=== PATIENT | female | born 1950 | race Caucasian/White ===

== ENCOUNTER → 2016-07-16 | Outpatient (CLI) | payer OTHER ==
[~2016-07-16] VITALS: Ht 170.2 cm; Wt 70.3 kg
[~2016-07-16] MED LIST: OMG1KC PO; TRAM-42 PO
== END ==
LOC: PREOP 07-15 05:41
PROVIDERS: ATTEND Orthopaedic Surgery
DX: Z01.818 Encounter for other preprocedural examination (principal); M23.8X1 Other internal derangements of right knee; M79.661 Pain in right lower leg

== ENCOUNTER 2016-07-22 09:29 | Day surgery (SDC) | payer OTHER ==
[~2016-07-22] VITALS: Ht 170.2 cm; Wt 70.3 kg
[~2016-07-22 09:29] MED LIST changes: -TRAM-42 PO
[2016-07-22] MEDS ORDERED: LACTATED RINGERS 1,000 ML IV PRN (09:52)
[2016-07-22] MEDS ORDERED: CATHETER FLUSH 10 ML SYR IV PRN (10:00)
[2016-07-22] MEDS ORDERED: CLINDAMYCIN 900 MG/NS 50 ML IVPB IV ONE ×3 (10:00)
[2016-07-22] MEDS ORDERED: BUP/EPI 0.5% 1:200,000 (SENSORCAINE) 30 ML VIAL ONE (10:09)
[2016-07-22] MEDS ORDERED: NEO/POLY/BAC (NEOSPORIN) OINT 15 GM TUBE ONE (10:09)
[2016-07-22] MEDS ORDERED: LIDOCAINE 1% INJ 20 ML (XYLOCAINE) VIAL ONE (10:09)
[2016-07-22] MEDS ORDERED: VANCOMYCIN INJECTION 500 MG in NS (IVPB) 100 ML IV ONE (10:15)
[2016-07-22 10:20] VITALS: BP 129/91
[2016-07-22] MEDS ORDERED: fentaNYL INJECTION 100 MCG/2 ML AMP ONE ×2 (10:20→11:34)
[2016-07-22] MEDS ORDERED: MIDAZOLAM 2 MG/2 ML (VERSED) VIAL ONE (10:20)
[2016-07-22] MEDS ORDERED: SEVOFLURANE (ULTANE) 15 ML INHAL SOLN ONE ×3 (10:21→11:30)
[2016-07-22] MEDS ORDERED: ONDANSETRON 4 MG/2 ML (SDV) Z0FRAN ONE (10:21)
[2016-07-22] MEDS ORDERED: LACTATED RINGERS 1,000 ML IV ONE (10:21)
[2016-07-22] MEDS ORDERED: proPOfol 200 MG/20 ML (DIPRIVAN) VIAL IV ONE (10:21)
[2016-07-22] MEDS ORDERED: LIDOCAINE PF 2% 10 ML (XYLOCAINE) AMP ONE (10:21)
[2016-07-22] MEDS ORDERED: DEXAMETHASONE PF 10 MG/ML (DECADRON) VIAL ONE (10:21)
[2016-07-22] MEDS ORDERED: KETOROLAC 30 MG/ML VIAL ONE (11:30)
--- NOTE | 2016-07-22 11:48 | Progress Note-Post Operative ---
Post-Operative Progess Note Surgeon (s)/Electrophysiology Nurse Practitioner (s) Surgeon TAYO CHIU DO Electrophysiology Nurse Practitioner: ELINA Choi Pre-Operative Diagnosis RIGHT KNEE TORN MEDIAL MENISCUS Post-Operative Diagnosis chondromalacia, PLICA Post-Op Procedure Note Date of Procedure: Jul 22, 2016 Name of Procedure Performed: right knee scope with plica resection and chondroplasty Description of the Procedure: see op note Findings of the Procedure tricompartmental chondromalacia, medial plica Anesthesia Type gen Estimated blood loss (mL): min Packing: none Specimen(s) collected/removed none TAYO CHIU DO Jul 22, 2016 11:48 am
--- NOTE | 2016-07-22 11:52 | Discharge Inst-Simple/Standard ---
Discharge Inst-Standard Discharge Medications New, Converted or Re-Newed RX: RX Given to Pt/Family Patient Instructions/Follow Up Plan of Care/Instructions/FU: Please see Dr. Chiu knee arthroscopy instructions Activity as Tolerated: No Discharge Diet: No Restrictions TAYO CHIU DO Jul 22, 2016 11:52 am
[2016-07-22] MEDS ORDERED: TRAM-42 PO (12:09)
[2016-07-22 12:45] VITALS: BP 125/76
[2016-07-22 13:15] VITALS: BP 132/82
[2016-07-22 13:45] VITALS: BP 137/78
[2016-07-22 14:35] VITALS: BP 137/78
--- NOTE | 2016-07-24 13:05 | OPERATIVE REPORT ---
PROCEDURE PHYSICIAN: TAYO CHIU DATE OF PROCEDURE: 07/22/2016 DICTATING PHYSICIAN: Dr. Tayo Chiu DO PREOPERATIVE DIAGNOSIS: Torn medial meniscus right knee with chondromalacia. POSTOPERATIVE DIAGNOSIS: 1. Torn lateral meniscus, right knee with chondromalacia. 2. Pathologic medial synovial plica right knee. PROCEDURE: Arthroscopy, right knee with partial lateral meniscectomy, chondroplasty and resection of the medial synovial plica. SURGEON: Dr. Chiu CHAIRMAN [employer] FOUNDER: ELINA Hatfield ANESTHESIA: General. INDICATIONS: The patient is a 66-year-old female seen with chief complaint difficulty with walking after sustaining a twisting injury while running. She continued to have persistent pain demonstrate tenderness over the medial joint and a positive medial Chavo test. The patient was taken to surgery where an arthroscopy of the right knee was performed. The patient demonstrated intact medial meniscus. She demonstrated grade III chondromalacia throughout the medial femoral condyle. There was a thickened pathologic medial synovial plica abutting against the medial femoral condyle causing abrasion of the medial femoral condyle. The anterior cruciate ligament was noted to be intact. The lateral meniscus demonstrated a degenerative tear of the inner rim of the middle horn. The patient had additional tearing over the far anterior aspect of the anterior horn of the lateral meniscus in the longitudinal fashion. The patient had a significant chondral defect over the lateral femoral condyle with loose chondral flaps over the weight-bearing surface the lateral femoral condyle involving approximately 50 60% of the articular cartilage thickness at this level. Superficial fibrillation tissue and fissuring of the lateral tibial plateau was noted. The patella demonstrated grade III chondromalacia of the medial and lateral facet. The patient trochlea demonstrated no abnormalities. A chondroplasty of the patellofemoral joint, the lateral femoral condyle, lateral tibial plateau and medial femoral condyle was completed. A partial lateral meniscectomy was completed, and the pathologic medial synovial plica was resected as well. PROCEDURE IN DETAIL: The patient was taken the operating room, placed supine upon the operating table and general inhalation anesthetic was administered. A well-padded pneumatic tourniquet was placed about the upper aspect of the after the right leg was placed in leg dominguez. An inflow cannula was placed through a superior medial position. A small effusion was expressed. The arthroscope was placed through an anterolateral portal and an 18-gauge needle was used to establish position for an anterior medial arthroscopic portal site. There was hypertrophic synovium in the intercondylar area. This was excised with a full radius synovial shaver. The medial meniscus was probed and found to be intact. The fibrillation tissue over the medial femoral condyle was debrided back to stable articular cartilage with the full radius synovial shaver. The inner rim tear (degenerative tear of the lateral meniscus) was debrided with full radius synovial shaver. Loose chondral flaps were debrided back to stable articular cartilage with a full radius synovial shaver and the defect extended in the posterior most aspect of the lateral femoral condyle. The anterior cruciate ligament was noted to be intact. Fibrillation tissue in the medial lateral facet of the patella was debrided back to stable articular cartilage. The pathologic synovial plica was debrided initially with a basket forceps and then the debridement was completed with a full radius synovial shaver. The tourniquet had been had been inflated midway through the procedure after exsanguinated the leg. The tourniquet was inflated to 300 mmHg pressure. The tourniquet was released. The knee was additionally irrigated with normal saline solution. The knee was injected with 20 mL of 1% lidocaine. An Adaptic Neosporin bulky dressing was placed about the right knee. The patient was awakened and was transported postop recovery with anesthesia personnel present in satisfactory condition. An intraoperative video recording as well as intraoperative photographs of the procedure were obtained for the record and provided to the patient. Job ID: [id number] Dictated Date: 07/22/2016 22:15:24 Bakery Clerk Date: 07/24/2016 11:41:11 / lindsey
== END 2016-07-22 14:35 | disposition home or self-care (01) ==
LOC: SDC 09:29
PROVIDERS: ATTEND Orthopaedic Surgery
DX: S83.281A Other tear of lateral meniscus, current injury, right knee, initial encounter (principal); M67.51 Plica syndrome, right knee; M94.261 Chondromalacia, right knee; Z11.2 Encounter for screening for other bacterial diseases; X50.9XXA Other and unspecified overexertion or strenuous movements or postures, initial encounter; Y93.02 Activity, running; Y99.8 Other external cause status
CPT/HCPCS: 87081

== ENCOUNTER 2018-06-09 13:22 | Day surgery (SDC) | payer MEDICARE, OTHER ==
[~2018-06-09] VITALS: Ht 170.2 cm; Wt 70.3 kg
[2018-06-09 13:30] VITALS: BP 139/93
[2018-06-09] MEDS ORDERED: BUP/EPI 0.5% 1:200,000 (SENSORCAINE) 30 ML VIAL ONE (14:14)
[2018-06-09 14:53] VITALS: BP 136/80
--- NOTE | 2018-06-09 14:54 | Progress Note-Post Operative ---
Post-Operative Progess Note Surgeon (s)/Director Of Infection Control (s) Surgeon RICHARD NELSON DO Director Of Infection Control: none Pre-Operative Diagnosis Foreign body left foot Post-Operative Diagnosis same, tip of needle Procedure & Operative Findings Date of Procedure 06/09/18 Procedure Performed/Findings Removal of foreign body with flouroscopic guidance Anesthesia Type Laundry Folder Tibial nerve block Estimated Blood Loss Estimated blood loss (mL): scant Specimens/Packing Specimens Removed tip of needle RICHARD NELSON DO Jun 09, 2018 14:54
[2018-06-09] MEDS ORDERED: TRAM-42 PO (14:56)
--- NOTE | 2018-06-09 14:57 | Discharge Inst-Surgical ---
Discharge Inst-Surgical Depart Medication/Instructions New, Converted or Re-Newed RX: RX Given to Pt/Family Patient Instructions Follow up Appt: Make appointment for 1 week. [phone] Instructions: May shower in 24 hours, no tub bath or soaking. Use incentive spirometer at home as directed. No Smoking Skin/Wound Care: May remove bandages in am. Come in to office for suture removal. Symptoms to Report: Appetite Changes, Extremity Discoloration, Numbness/Tingling, Swelling Increased , Bleeding Excessive, Eyesight Changes, Pain Increased, Urine Color Change, Constipation(Persistent), Fever over 101 degree F, Pain/Pressure in chest, Urinating Difficulty, Cough Up/Vomit Blood, Heart Beat Irreg/Pounding, Pain/ Pressure in jaw, Cramps in feet or legs, Lightheadedness, Pain/Pressure in shoulder, Diarrhea(Persistent), Memory Changes Suddenly, Questions/Concerns, Weight gain consecutive days, Dizziness/Fainting, Nausea/Vomiting, Shortness of Breath, Weight gain over 2 pounds If questions or concerns contact your physician Or seek help at emergency department. Activity Activity as Tolerated: Yes Activity Instructions: Avoid Stress to Incision Driving Instructions: No Driving/Refer to Diet Discharge Diet: No Restrictions Diet After 24 Hours: Clear Liquid if Nauseous If Any Problems/Questions/Issu: Contact Your Physician, Go to Emergency Room Skin/Wound Care Infection Signs and Symptoms: Increased Redness, Foul Odor of Wound, Increased Drainage, Skin Itchy or Has a Rash, Increased Swelling, Temperature Above 101 F Bathing Instructions: Shower Stitches/Cristian/Dermabond Dis: Care of Stitches Ice Pack: Ice On and Off Site (as needed for pain) RICHARD NELSON DO Jun 09, 2018 14:57
[2018-06-09 15:15] VITALS: BP 136/80
--- NOTE | 2018-06-09 16:50 | Diagnostic Imaging Report ---
Indication: Fluoroscopy during foreign body removal. Fluoroscopy was provided for Dr. Zayas during foreign body removal of the left foot. 24 seconds of fluoroscopy was utilized. Initial images demonstrate a linear needle foreign body overlying the great toe. Followup images demonstrate removal of the foreign body. Impression: Fluoroscopy for left foot foreign body removal. Dictated by: Dictated on workstation # [id number]
--- NOTE | 2018-06-10 15:37 | OPERATIVE REPORT ---
DATE OF SERVICE: 06/09/2018 PREOPERATIVE DIAGNOSIS: Retained foreign body, left foot. POSTOPERATIVE DIAGNOSIS: Tip of the needle in the left foot. PROCEDURE: Removal of foreign body. SURGEON: Pako Zayas DO. FAMILY AND CONSUMER SCIENCES PROFESSOR: None. ANESTHESIA: None just local lidocaine. BLOOD LOSS: Scant. FLUIDS: None. POSTOPERATIVE CONDITION: Stable. SPECIMEN: Portion of the needle. INDICATION FOR PROCEDURE: The patient is a 68-year-old female who stepped on a needle on Friday, but then spent time with her new grandson, finally went to urgent care yesterday and then sent to my office to have this removed. In the office, we attempted to remove it, unsuccessful, sent for x-ray, attempt to begin and then she was sent to the operating room. FINDINGS: The patient had a needle tip stuck in her left ball of her foot, removed. PROCEDURE NOTE: After informed consent was obtained, the patient was brought to the operating room. Did not use anesthesia just local lidocaine. I did a posterior tibial nerve block with 5.5 mL of Xylocaine, right by the medial malleolus just posterior to the posterior tibial artery. Once this was numb then had C-arm come and had already made an incision in my office, so this was opened. She was sterilely prepped and draped using 3 mosquitoes attempted to localize by taking a quick shots with the C-arm to try and find exactly where this needle was, finally got 3 mosquitoes in and able to identify a needle could see sticking out able to grasp this and pull this out of the foot. The patient tolerated the procedure. Area was copiously irrigated with normal saline and then closed with 3-0 nylon, 3 interrupted sutures, simple sutures. Area cleaned and dried. A dressing was placed. The patient then transferred to recovery room in stable condition. Sponge and needle count correct at the end of the case. Job ID: [id number] DocumentID: [id number] Dictated Date: 06/10/2018 11:54:36 Roofing Machine Operator Date: 06/10/2018 15:36:09 Dictated By: PAKO ZAYAS DO
== END 2018-06-09 15:15 | disposition home or self-care (01) ==
LOC: SDC 13:22
PROVIDERS: ATTEND Surgery
DX: S91.342A Puncture wound with foreign body, left foot, initial encounter (principal)
CPT/HCPCS: 87081

== ENCOUNTER → 2018-06-09 | Outpatient (CLI) | payer MEDICARE, OTHER ==
[~2018-06-09] MED LIST changes: +TRAM-42 PO
--- NOTE | 2018-06-09 13:43 | Diagnostic Imaging Report ---
INDICATION: Stepped on needle, broke off in the foot.. TECHNIQUE: 3 views of the left foot CORRELATION STUDY: None FINDINGS: There are 2 adjacent wire, metallic densities over the soft tissues interposed between the first and second toes. Soft tissue defect appears to be suggested. Definitive encroachment into bony structures does not appear to be suggested. However, there is an obliquely oriented defect at the base of the proximal phalanx of the second toe at the articular surface suspect for potential fracture. Hallux valgus primus varus alignment with degenerative change about the first MTP joint. Toes are held in flexure. Prominent plantar calcaneal spur. IMPRESSION: Two adjacent, wire-like fragments within soft tissues interposed from the first and second digit. Question of potential fracture at the articular base of the proximal phalanx second toe. Post foreign body removal imaging would be recommended Dictated by: Dictated on workstation # [id number]
== END ==
LOC: RAD 11:41
PROVIDERS: ATTEND Surgery
DX: M79.5 Residual foreign body in soft tissue (principal); W27.3XXA Contact with needle (sewing), initial encounter
CPT/HCPCS: 73630